=== PATIENT | male | born 1945 ===

== ENCOUNTER 2017-02-07 13:08 | Emergency (ER) | payer MEDICARE ==
[2017-02-07 13:09] VITALS: PULSE 72; BMI 22.8
[2017-02-07 13:33] VITALS: O2SAT 100
[2017-02-07 14:47] LABS: TROPONIN I 0.062 ng/mL (0.00-0.120)
[2017-02-07 14:53] LABS: BASO # 0.1 K/uL (0.0-0.2); BASO % 0.6 % (0.0-2.0); EOS % 0.5 % (0.0-4.0); HEMATOCRIT 40.3 % (35.0-51.0); LYMPH # 0.5 K/uL (1.0-4.3); LYMPH % 5.9 % (20.0-40.0); MEAN CELL VOLUME 88.3 fl (80.0-94.0); MEAN CORPUSCULAR HEMOGLOBIN 28.5 pg (27.0-31.0); MEAN CORPUSCULAR HGB CONC 32.3 g/dL (33.0-37.0); MEAN PLATELET VOLUME 10.9 fl (7.2-11.7); MONO # 0.9 K/uL (0.0-0.8); MONO % 9.8 % (0.0-10.0); NEUT # 7.6 K/uL (1.8-7.0); NEUT % 83.2 % (50.0-75.0); NRBC % 0.2 % (0.0-0.0); PLATELET COUNT 124 K/uL (130-400); RED CELL DISTRIBUTION WIDTH 16.3 % (11.5-14.5); WHITE BLOOD COUNT 9.1 K/uL (4.8-10.8)
[2017-02-07 14:54] LABS: POTASSIUM 4.7 MMOL/L (3.6-5.0); TOTAL PROTEIN 8.5 G/DL (6.3-8.2)
[2017-02-07] MEDS ORDERED: Insulin Regular 100 units/ml IVP ONE (15:26)
[2017-02-07] MEDS ORDERED: Sodium Chloride 0.9% 250 ML IV SCH (15:30)
[2017-02-07] MEDS ORDERED: Insulin Regular 100 units/ml ONE (15:53)
--- NOTE | 2017-02-07 16:02 | ED PDOC ---
Hyperglycemia/Hypoglycemia Time Seen by Provider: 02/07/17 14:01 Chief Complaint (Nursing): High Blood Sugar Chief Complaint (Provider): Hyperglycemia History Per: Patient History/Exam Limitations: no limitations Onset/Duration Of Symptoms: Hrs : The patient does not have any of the infectious symptoms listed except for those marked. Additional Complaint(s): Patient is a 71 y/o male with a past medical history of diabetes, hypertension, asthma, and chronic obstructive pulmonary disorder sent from the dialysis access clinic to the emergency department for hyperglycemia. States that his sugar is often elevated and admits to partial compliance with home medications. Patient was given insulin at the clinic. Denies any active complaints including chest pain, shortness of breath, fever, cough, or other complaints. PCP: none provided. Past Medical History Reviewed: Historical Data, Nursing Documentation, Vital Signs Vital Signs: Last Vital Signs Temp 99 F 02/07/17 13:30 Pulse 92 H 02/07/17 13:30 Resp 20 02/07/17 13:30 BP 134/52 L 02/07/17 13:30 Pulse Ox 100 02/07/17 13:30 - Medical History PMH: Anemia, Arthritis, CAD, COPD, Diabetes, HTN, Hypercholesterolemia, End Stage Renal Disease (TTS), Chronic Kidney Disease Denies: Atrial Fibrillation - Surgical History Surgical History: CABG (X2), Coronary Stent Other surgeries: Left above knee amputation - Family History Family History: States: Diabetes, Hypertension - Immunization History Hx Tetanus Toxoid Vaccination: Yes Hx Influenza Vaccination: Yes Hx Pneumococcal Vaccination: Yes - Home Medications Home Medications: Ambulatory Orders Medication Instructions Recorded Rosuvastatin Calcium [Crestor] 10 mg PO HS 06/09/15 Allopurinol [Zyloprim] 100 mg PO DAILY 07/03/16 Aspirin [Ecotrin] 81 mg PO DAILY 07/03/16 Clopidogrel [Plavix] 75 mg PO DAILY 07/03/16 Digoxin [Digitek] 125 mcg PO DAILY 07/03/16 Insulin Aspart, Recombinant 25 unit SQ TID PRN 07/03/16 [Novolog] - Allergies Allergies/Adverse Reactions: Allergies Allergy/AdvReac Type Severity Reaction Status Date / Time No Known Allergies Allergy Verified 07/03/16 08:59 Review of Systems ROS Statement: Except As Marked, All Systems Reviewed And Found Negative Constitutional: Positive for: Other (High blood sugar). Negative for: Fever Cardiovascular: Negative for: Chest Pain Respiratory: Negative for: Cough, Shortness of Breath Physical Exam - Reviewed Nursing Documentation Reviewed: Yes Vital Signs Reviewed: Yes - Physical Exam Appears: Positive for: Well, Non-toxic, No Acute Distress Head Exam: Positive for: ATRAUMATIC, NORMAL INSPECTION, NORMOCEPHALIC Skin: Positive for: Normal Color, Warm, Dry Eye Exam: Positive for: Normal appearance Neck: Positive for: Normal Cardiovascular/Chest: Positive for: Regular Rate, Rhythm. Negative for: Murmur Respiratory: Positive for: Normal Breath Sounds. Negative for: Accessory Muscle Use, Respiratory Distress Gastrointestinal/Abdominal: Positive for: Normal Exam, Soft. Negative for: Tenderness Extremity: Positive for: Normal ROM, Other (Left arm AV shunt, left above knee amputation) Neurologic/Psych: Positive for: Alert, Oriented (x3) - Laboratory Results Result Diagrams: 02/07/17 14:15 02/07/17 14:15 - ECG O2 Sat by Pulse Oximetry: 100 (RA) Pulse Ox Interpretation: Normal Medical Decision Making Medical Decision Making: Time: 16:04 Initial impression: Hyperglycemia Initial plan: CBC Insulin 10 units IVP Sodium Chloride 0.9% 250 mL IV Urinalysis Reevaluation on re-eval glucose markedly improved w gentle IVF and insulin therapy. wants to go home has HD tomorrow DC from ED, K+ normal Scribe Attestation: Documented by Adele Loredo, acting as a scribe for Taras Vargas DO. Provider Scribe Attestation: All medical record entries made by the Scribe were at my direction and personally dictated by me. I have reviewed the chart and agree that the record accurately reflects my personal performance of the history, physical exam, medical decision making, and the department course for this patient. I have also personally directed, reviewed, and agree with the discharge instructions and disposition. Disposition - Clinical Impression Clinical Impression: Hyperglycemia, ESRD (end stage renal disease) on dialysis - Patient ED Disposition Is Patient to be Admitted: No Counseled Patient/Family Regarding: Studies Performed, Diagnosis, Need For Followup - Disposition Disposition: Routine/Home Disposition Time: 17:30 Condition: STABLE Additional Instructions: Followup for dialysis tomorrow as directed Return to ER for any worse or new symptoms/ Instructions: Diabetic Hyperglycemia (ED) Forms: [employer] (Bulgarian)
[2017-02-07 16:06] LABS: BASOPHIL 2 % (0-2); NEUTROPHIL 86 % (42-75); TOTAL CELLS COUNTED 100
[2017-02-07 18:50] VITALS: BP 122/67; PULSE 78; RESP 18; TEMP 98
== END 2017-02-07 18:00 | disposition home or self-care (01) ==
LOC: H.ER 13:08
DX: E11.65 Type 2 diabetes mellitus with hyperglycemia (principal); E11.22 Type 2 diabetes mellitus with diabetic chronic kidney disease; E78.00 Pure hypercholesterolemia, unspecified; I12.0 Hypertensive chronic kidney disease with stage 5 chronic kidney disease or end stage renal disease; Z79.4 Long term (current) use of insulin; Z79.82 Long term (current) use of aspirin; Z89.612 Acquired absence of left leg above knee; Z95.1 Presence of aortocoronary bypass graft; Z95.5 Presence of coronary angioplasty implant and graft; Z99.2 Dependence on renal dialysis